=== PATIENT | female | born 1980 | race Caucasian/White ===

== ENCOUNTER 2018-03-08 07:54 | Inpatient (IN) | payer BC ==
[2018-03-08 08:16] LABS: #Basophils 0.1 thou/uL (0.0-0.2); #Eosinphils 0.1 thou/uL (0.0-0.7); #Lymphocytes 2.1 thou/uL (1.20-3.40); #Monocytes 1.1 thou/uL (0.11-0.59); #Neutrophils 10.9 thou/uL (1.40-6.50); %Basophils 0.5 % (0.0-1.0); %Eosinophils 0.5 % (0.0-10.0); %Lymphocytes 14.9 % (21.0-51.0); %Monocytes 7.8 % (0.0-10.0); %Neutrophils 76.3 % (42.0-75.0); Hemoglobin 12.3 g/dL (12.0-16.0); Mean Corpuscular HGB CONC 32.5 g/dL (32.0-36.0); Mean Corpuscular Hemoglobin 27.3 pg (27.0-31.0); Mean Platelet Volume 6.8 fL (7.4-10.4); Platelet Count 310 thou/uL (130-400); RBC Distribution Width 13.5 % (11.5-14.5); White Blood Cell (WBC) Count 14.2 thou/uL (4.8-10.8)
[2018-03-08 08:34] LABS: ALT (SGPT) 18 U/L (8-55); AST (SGOT) 19 U/L (5-34); Albumin 3.6 g/dL (3.5-5.0); Alkaline Phosphatase 173 U/L (40-150); Anion Gap 13 mmol/L (10-20); BUN (Urea Nitrogen) 10 mg/dL (7.0-18.7); Bilirubin, Total 0.6 mg/dL (0.2-1.2); Calc. Creatinine Clearance 0 mL/min (70-130); Calcium 9.6 mg/dL (7.8-10.44); Carbon Dioxide 20 mmol/L (22-29); Chloride 107 mmol/L (98-107); Estimated GFR-MDRD Greater than 90; Globulin 2.8 g/dL (2.4-3.5); Glucose 94 mg/dL (70-105); Potassium 3.2 mmol/L (3.5-5.1); Protein, Total 6.4 g/dL (6.0-8.3); Sodium 137 mmol/L (136-145)
[2018-03-08] MEDS ORDERED: LR / Pitocin 40 units/1000 ml 1,000 ML IV PRN (08:43)
[2018-03-08] MEDS ORDERED: Misoprostol 200 MCG TAB PR PRN (08:43)
[2018-03-08] MEDS ORDERED: Ondansetron HCl/PF 4 MG/2 ML Vial IVP PRN ×2 (08:43→08:47)
[2018-03-08] MEDS ORDERED: Promethazine HCl 25 MG/ML VIAL IM PRN (08:43)
[2018-03-08] MEDS ORDERED: Ibuprofen 800 MG TAB PO PRN (08:43)
[2018-03-08] MEDS ORDERED: Diphenoxylate HCl/Atropine Tablet PO PRN ×2 (08:43)
[2018-03-08] MEDS ORDERED: Methylergonovine 0.2 MG/ML VIAL IM PRN ×2 (08:43→08:47)
[2018-03-08] MEDS ORDERED: HYDROcodone/Acetaminophen 5/325 mg Tablet PO PRN ×4 (08:43→08:47)
[2018-03-08] MEDS ORDERED: Carboprost 250 MCG/ML AMP IM PRN (08:43)
[2018-03-08] MEDS ORDERED: Lidocaine 1% (PF) 30 ML VIAL SC PRN (08:43)
[2018-03-08] MEDS ORDERED: Lactated Ringer's 1,000 ML IV SCH (08:45)
[2018-03-08] MEDS ORDERED: Preparation H Ointment 28 GM TUBE PR PRN (08:47)
[2018-03-08] MEDS ORDERED: diphenhydrAMINE 25 MG CAP PO PRN (08:47)
[2018-03-08] MEDS ORDERED: Bisacodyl 10 MG SUPP PR PRN (08:47)
[2018-03-08] MEDS ORDERED: Adacel (T-DAP) 0.5 ML VIAL IM ONE (08:47)
[2018-03-08] MEDS ORDERED: Varicella virus, LIVE 0.5 ML VIAL SC ONE (08:47)
[2018-03-08] MEDS ORDERED: Lanolin Ointment 7 GM TUBE TOP PRN (08:47)
[2018-03-08] MEDS ORDERED: Zolpidem Tartrate 5 MG TAB PO PRN (08:47)
[2018-03-08] MEDS ORDERED: Milk Of Magnesia 30 ML UDCUP PO PRN (08:47)
[2018-03-08] MEDS ORDERED: Measles/Mumps/Rubella 10 MCG/0.5 ML VIAL SC ONE (08:47)
[2018-03-08] MEDS ORDERED: Benzocaine/Menthol 20-0.5% 60 ML CAN TOP PRN (08:47)
--- NOTE | 2018-03-08 08:52 | PDOC.LDHP ---
Labor and Delivery H&P Chief complaint: contractions HPI: 37 y/o at 39w6d, patient of Dr. Eason, presents to ED with contractions starting around 0400. No VB, LOF, or decreased FM. ROS neg for HEENT, cv, pulm, gi, gu, neuro, psych, skin, musculoskeletal or constitutional symptoms other than mentioned above. OB History Details: 1 prior term Current complications: other (AMA) Past Medical History: None Current medications: pre- vitamins Previous surgical history: none Allergies/Adverse Reactions: Allergies Allergy/AdvReac Type Severity Reaction Status Date / Time No Known Allergies Allergy Unverified 03/08/18 08:05 Social history: none - Physical Exam Vital signs reviewed and normal: yes General: NAD, resting Lungs: nonlabored breathing Abdomen: gravid Extremeties: no edema - Vaginal Exam cm dilated: 10 Effacement: 100% Station: 3+ - OB Labs Blood type: O RH: positive Antibody Screen: negative HIV: negative RPR: negative HEPSAg: negative GBS: negative Rubella: immune - Assessment L&D Assessment: term patient in labor - Plan Plan: admit to L&D, informed consent obtained
[2018-03-08] MEDS ORDERED: LR / Pitocin 40 units/1000 ml 1,000 ML IV SCH (09:00)
[2018-03-08] MEDS ORDERED: Misoprostol 200 MCG TAB VAG SCH (09:00)
--- NOTE | 2018-03-08 09:00 | PDOC.OPDEL ---
OB Operative/Delivery Note Delivery Dr/Surgeon: Wallace Pre-Delivery Diagnosis: active labor Procedure/Post Delivery Dx: spontaneous vaginal delivery Weeks gestation: 39 Anesthesia: none - Findings A Sex: female ("John") Weight: 7 lb 14.21 oz - 1 min: 9 - 5 min: 9 - Additional Findings/Plan Placenta delivered: spontaneous Repaired Obstetrical Laceration: 1st degree Estimated blood loss: 200 Compilations/Other Findings: Called to ER to deliver, as patient was 10/100/+3 on presentation. I performed an uncomplicated of vigorous female . Transferred to L&D room for spontaneous delivery of placenta. Small 1st degree midline laceration hemostatic, did not require repair. Mom and baby doing well. Post delivery plan: routine recovery
[2018-03-08 09:37] VITALS: BMI 29.9
[2018-03-08] MEDS: Docusate Calcium (SURFAK) 240 MG CAP PO SCH ×2 (09:57→21:58)
[2018-03-08] MEDS: Prenatal Vitamin 1 TAB PO SCH (09:57)
[2018-03-08 12:25] LABS: HBSAg Index 0.14 S/CO (0-0.99); Hep B Surf Ag Non-Reactive S/CO (NonReactive)
[2018-03-08 13:14] LABS: Syphilis Antibody Nonreactive (Nonreactive); Syphilis Antibody Index 0.04 S/CO (<1.00 Non-Reactive)
[2018-03-08] MEDS: Ibuprofen 800 MG TAB PO SCH ×2 (17:37→21:58)
[2018-03-08] MEDS: Ferrous Sulfate 325 MG TAB PO SCH (17:40)
[2018-03-09] MEDS: Ibuprofen 800 MG TAB PO SCH ×2 (06:41→13:53)
[2018-03-09] MEDS: Docusate Calcium (SURFAK) 240 MG CAP PO SCH (07:57)
[2018-03-09] MEDS: Prenatal Vitamin 1 TAB PO SCH (07:57)
[2018-03-09 08:55] VITALS: BP 133/88; TEMP 98.3
[2018-03-09] MEDS: Ferrous Sulfate 325 MG TAB PO SCH ×2 (09:03→15:16)
--- NOTE | 2018-03-09 09:54 | PDOC.PP ---
Post Progress Note Post Day #: 1 Subjective: doing well, desires DC today if baby DC'd, nursing well, no concerns. PO intake tolerated: yes Flatus: yes Ambulation: yes Vital Signs (12 hours) Temp Pulse Resp BP 03/09/18 07:40 98.3 F 88 14 133/88 03/09/18 00:00 98.6 F 90 20 03/08/18 22:00 98.6 F 85 18 125/75 Weight Weight 191 lb - Physical Examination General: NAD Respiratory: non-labored breathing Abdominal: no distention Fundus firm & at: below umb Extremities: negative homans (B) Skin: no rash Neurological: no gross focal deficits Psychiatric: A&Ox3, normal affect Result Diagrams: 03/08/18 08:14 03/08/18 08:14 Additional Labs: Post Labs Blood Type O POSITIVE 03/08/18 08:14 Hep Bs Antigen Non-Reactive S/CO (NonReactive) 03/08/18 08:43 (1) Precipitous delivery Code(s): O62.3 - PRECIPITATE LABOR Status: Acute (2) Term delivered Code(s): O80 - ENCOUNTER FOR FULL-TERM UNCOMPLICATED DELIVERY Status: Acute - Assessment/Plan PPD1, desires DC home today if baby DC'd.
== END 2018-03-09 16:15 | disposition home or self-care (01) | DRG 775 ==
LOC: ERS 07:54 → L&D/OP 07:54 → UNDOADMIN 08:43 → L&D 08:43 → 3SW 12:04 → L&D 12:04 → UNDODISIN 03-09 16:15 → EDSTATUS 03-10 14:57
PROVIDERS: ADMIT Obstetrics & Gynecology; ATTEND Obstetrics & Gynecology
PROC: 10E0XZZ Delivery of Products of Conception, External Approach (ICD-10-PCS; principal; 2018-03-08)
DX: O62.3 Precipitate labor (principal); O70.0 First degree perineal laceration during delivery; Z37.0 Single live birth; Z3A.39 39 weeks gestation of pregnancy; Z88.1 Allergy status to other antibiotic agents; Z88.0 Allergy status to penicillin
CPT/HCPCS: 80053; 85025; 86780; 86850; 86900; 86901; 87340; 96374; 99285; J0595